=== PATIENT | male | born 1935 | race Caucasian/White ===

== ENCOUNTER → 2016-08-16 | Outpatient (CLI) | payer MEDICARE, OTHER ==
--- NOTE | 2016-08-17 08:15 | RAD ---
EXAM DESCRIPTION: XR ABDOMEN 1 VIEW (KUB) CLINICAL HISTORY: KIDNEY STONES COMPARISON: 18 November 2014 TECHNIQUE: KUB FINDINGS: There is an unremarkable bowel gas pattern. There are 3 nonobstructing stones project over the right kidney unchanged since the comparison study. There are 2 tiny stones projected over the central and upper portion of the left kidney which also appears stable since previous is observed. IMPRESSION: 1. Nonobstructing bilateral nephrolithiasis Electronically signed by: Chris Suarez MD 08/17/2016 08:14
== END ==
LOC: RAD 14:20
PROVIDERS: ATTEND Urology
DX: N20.0 Calculus of kidney (principal)

== ENCOUNTER → 2016-12-23 | Outpatient (CLI) | payer MEDICARE, OTHER | END | disposition home or self-care (01) | LOC: GMAB 10:30 | PROVIDERS: ATTEND Family Medicine | DX: Z12.5 Encounter for screening for malignant neoplasm of prostate (principal); I10 Essential (primary) hypertension; E03.9 Hypothyroidism, unspecified | CPT/HCPCS: 84439; 84443; 84481; G0103 ==

== ENCOUNTER → 2017-04-25 | Outpatient (CLI) | payer MEDICARE, OTHER ==
--- NOTE | 2017-04-26 16:07 | RAD ---
EXAM DESCRIPTION: XR ABDOMEN 1 VIEW (KUB) CLINICAL HISTORY: KIDNEY STONES COMPARISON: August 16, 2016 TECHNIQUE: KUB FINDINGS: There is an unremarkable bowel gas pattern. No obstruction or ileus is evident. No soft tissue masses or unusual calcifications are noted. Small intrarenal calculi overlying the mid and lower pole of each kidney and appear little changed from prior study. Bilateral pelvic phleboliths are noted. Age appropriate bony degenerative changes are present. IMPRESSION: Bilateral nonobstructing intrarenal calculi are little changed from prior study. Electronically signed by: Zack Layne MD 04/26/2017 4:05 PM CDT
== END ==
LOC: RAD 13:42
PROVIDERS: ATTEND Urology
DX: N20.0 Calculus of kidney (principal)

== ENCOUNTER → 2017-09-30 | Outpatient (CLI) | payer MEDICARE, OTHER | LOC: LAB.O 10:50 | PROVIDERS: ATTEND Internal Medicine Interventional Cardiology | DX: I10 Essential (primary) hypertension (principal); R07.9 Chest pain, unspecified ==

== ENCOUNTER → 2018-03-30 | Outpatient (CLI) | payer MEDICARE, OTHER | LOC: GMAE 11:18 | PROVIDERS: ATTEND Family Medicine | DX: E03.9 Hypothyroidism, unspecified (principal) ==

== ENCOUNTER → 2018-04-03 | Outpatient (CLI) | payer MEDICARE, OTHER ==
--- NOTE | 2018-04-03 14:52 | RAD ---
EXAM DESCRIPTION: KUB CLINICAL HISTORY: KIDNEY STONES COMPARISON: April 25, 2017 KUB TECHNIQUE: KUB FINDINGS: There is an unremarkable bowel gas pattern. Small calculus is seen in the region of the lower calyx of the right kidney which measures 4 mm. Calcifications are seen in the pelvis which are indeterminate and may represent phleboliths. No change in the pattern of calcification since previous study. Question tiny calculus in the lower calyx of the left kidney but this is not definite. IMPRESSION: Bilateral renal calculi. Pelvic calcifications unchanged compared to previous study, probably phleboliths. Electronically signed by: Rodger Marion MD 04/03/2018 2:51 PM CDT
== END ==
LOC: RAD 13:28
PROVIDERS: ATTEND Urology
DX: N20.0 Calculus of kidney (principal)

== ENCOUNTER → 2019-04-10 | Outpatient (CLI) | payer MEDICARE, OTHER | LOC: GMAE 10:39 | PROVIDERS: ATTEND Family Medicine | DX: Z12.5 Encounter for screening for malignant neoplasm of prostate (principal); E03.9 Hypothyroidism, unspecified; I10 Essential (primary) hypertension | CPT/HCPCS: 84439; 84443; 84481; G0103 ==

== ENCOUNTER → 2019-05-17 | Outpatient (CLI) | payer MEDICARE, OTHER ==
--- NOTE | 2019-05-18 10:37 | US ---
US THYROID CLINICAL STATEMENT: NONTOXIC SINGLE THYROID NODULE. No palpable mass, no prior thyroid surgery or therapy. COMPARISON: None TECHNIQUE: Transcutaneous scanning, grayscale and Doppler modes. FINDINGS: Size right thyroid lobe: 3.9 x 2.2 x 1.9 cm Size left thyroid lobe: 3.7 x 2.5 x 1.8 cm Size isthmus: 0.58 cm Estimated total number of nodules greater than or equal to 1 cm: 2. No distinct simple cyst, no large calcifications, and no parenchymal edema. Nodule 1: Size: 3.1 x 1.8 x 1.7 cm Location: Left Mid Composition: mixed cystic and solid: 1 point Echogenicity: hypoechoic: 2 points Shape: wider than tall: 0 points Margins: smooth: 0 points. Partially vascular. Echogenic foci: none: 0 points ACR Total Points: 3; ACR TI-RADS risk category: TR3 - mildly suspicious nodule. Nodule 2: Size: 1.1 x 0.8 x 0.7 cm Location: Right Upper Composition: solid or almost completely solid: 2 points Echogenicity: hypoechoic: 2 points Shape: wider than tall: 0 points Margins: smooth: 0 points. Margin is partially vascular. Echogenic foci: none: 0 points ACR Total Points: 4; ACR TI-RADS risk category: TR4 - moderately suspicious nodule. No dominant solid mass or distinct cyst in the surrounding soft tissues. IMPRESSION: 1. Nodule 1: ACR TI-RADS 2017 Category TR3. Recommend: Ultrasound-guided fine needle aspiration. Recommendations based upon [facility] Best Practice recommendations and ACR TI-RADS 2017 guidelines. Please see below*. 2. Nodule 2: ACR TI-RADS 2017 Category TR4. Recommend: Follow-up ultrasound in 1 year. 3. Soft tissue around the thyroid gland is unremarkable. *ACR TI-RADS 2017 Recommendations for imaging follow-up of nodules: TR1: No FNA or follow up TR2: No FNA or follow up TR3: FNA if >/= 2.5 cm, follow up if 1.5 - 2.4 cm in 1, 3, and 5 years TR4: FNA if >/= 1.5 cm, follow up if 1.0 - 1.4 cm in 1, 2, 3, and 5 years TR5: FNA if >/= 1.0 cm, follow up if 0.5 - 0.9 cm every year for 5 years ACR TI-RADS recommends that no more than two nodules with the highest ACR TI-RADS total point should be biopsied and no more than four nodules should be followed. These recommendations do not apply to patients with increased risk for thyroid cancer or patients with symptomatic thyroid disease. Electronically signed by: Trenton Castellanos MD 05/18/2019 10:35 AM CDT
== END ==
LOC: US 14:00
PROVIDERS: ATTEND Family Medicine
DX: E04.1 Nontoxic single thyroid nodule (principal)

== ENCOUNTER → 2019-06-05 | Outpatient (CLI) | payer MEDICARE, OTHER ==
--- NOTE | 2019-06-05 17:31 | US ---
Thyroid Biopsy, Image-Guided: Ultrasound CLINICAL INFORMATION: Partially cystic partially solid mass in the left lobe. TECHNIQUE: Timeout was performed prior to the procedure with identification of patient by name, date of , and procedure to be performed. Procedure was performed by Dr. Castellanos; explained to the patient with risks and benefits. The patient gave verbal and written consent. Sterile preparation draping. 1% xylocaine dermal anesthetic 9-1 mixture with sodium bicarbonate. Sterile ultrasound guidance. A total of 6 passes into complex mass left thyroid lobe; 3 needle samplings with a separate 1.5 inch, 25-gauge needle per sample, and 3 aspirations, with a separate 1.5 inch, 25-gauge needle/10-cc syringe set, per aspiration. A total of 10 mL fluid was aspirated. Each sample was placed on a separate slide and fixed in 95% alcohol container. Saccomanno fluid drawn into aspirate needle and rinse injected into Saccomanno container. Specimens to be sent for pathologic examination at remote facility. . Patient tolerated procedure well. Biopsy #: 1 Nodule reference number based on prior diagnostic ultrasound:3 Maximum size: 3.1 cm Location: left; mid ACR TI-RADS risk category: TR3 (3 points) Reason for biopsy: meets ACR TI-RADS criteria Comments: Approximately 10 mL of yellowish slightly turbid fluid was aspirated from the mass. Complications: None. IMPRESSION: Successful ultrasound guided fine needle aspiration and sampling of left thyroid nodule. Approximately 10 mL of non clear fluid, slightly turbid, was aspirated. ACR TI-RADS Risk Category TR 3: Mildly suspicious nodule. Electronically signed by: Trenton Castellanos MD 06/05/2019 5:30 PM [employer]
== END ==
LOC: US 09:00
PROVIDERS: ATTEND Family Medicine
DX: E04.1 Nontoxic single thyroid nodule (principal)

== ENCOUNTER → 2020-01-14 | Outpatient (CLI) | payer MEDICARE, OTHER ==
--- NOTE | 2020-01-15 07:47 | RAD ---
EXAM DESCRIPTION: Abdomen, single radiograph CLINICAL HISTORY: RIGHT RENAL STONES FINDINGS/ IMPRESSION: Comparison 04/03/2018 Right lower pole calculus unchanged, 3 mm. Right mid calculus 3 to 4 mm not included in the midyx-sy-zsnh on previous study A couple of punctate calcifications in the left kidney not seen on previous study No calculus along the course of the ureters. A few phleboliths in the pelvis Normal bowel gas pattern. No organomegaly or obvious abdominal mass lesion Electronically signed by: Zack Elaine MD 01/15/2020 7:46 AM CDT
== END ==
LOC: RAD 14:47
PROVIDERS: ATTEND Urology
DX: N20.0 Calculus of kidney (principal); I87.8 Other specified disorders of veins

== ENCOUNTER 2020-03-02 10:08 | Inpatient (IN) | payer MEDICARE, OTHER ==
[2020-03-02] MEDS ORDERED: ONDANSETRON INJ 4 MG/2 ML VIAL IV ONE (10:16)
--- NOTE | 2020-03-02 10:19 | ED.PDOC ---
History of Present Illness - General Time Seen by Provider: 03/02/20 10:14 Source: patient, Vital Signs reviewed Additional Information: This is an 84-year-old male patient, presents to the ER because of nausea vomiting, patient started taking gabapentin and he thinks that this could be the reason that this is been having the symptoms denies any fever chills no abdominal pain. Patient is scheduled to have a back procedure on next week or so he has been checking his blood pressure and temperature and has not had any fever and no sick contacts. Denies cigarettes alcohol or drugs Patient stopped taking his gabapentin yesterday but still feels very nauseated He stated that he has not been able to hold anything down Patient started taking the gabapentin 2 weeks ago, as of now he is first take the medication he became nauseous, and has some vomiting he was prescribed some Zofran he was doing well with the Zofran but then for the past 4 days started vomiting again and unable to hold any fluids down - History of Present Illness Timing/Duration: constant Worsening Factors: nothing Associated Symptoms: denies symptoms Allergies/Adverse Reactions: Allergies Penicillins Allergy (Verified 03/02/20 10:22) Home Medications: Ambulatory Orders Aspirin [Aspirin Adult Low Dose] 81 mg PO DAILY 03/02/20 Docusate Sodium [Colace Cap] 100 mg PO BEDTIME 03/02/20 Gabapentin 300 mg PO TID PRN 03/02/20 Ibuprofen 600 mg PO TID 03/02/20 Levothyroxine Sodium [Synthroid] 100 mcg PO DAILY 03/02/20 Metoprolol Succinate [Metoprolol Succinate ER] 50 mg PO DAILY 03/02/20 Ondansetron Odt [Zofran ODT] 8 mg PO TID PRN 03/02/20 Tamsulosin [Flomax] 0.8 mg PO BEDTIME 03/02/20 Tramadol HCl 50 mg PO PRN 03/02/20 Review of Systems - Review of Systems Constitutional: States: no symptoms reported EENTM: States: no symptoms reported Respiratory: States: no symptoms reported Cardiology: States: no symptoms reported Gastrointestinal/Abdominal: States: nausea, vomiting Genitourinary: States: no symptoms reported Musculoskeletal: States: no symptoms reported Skin: States: no symptoms reported Neurological: States: no symptoms reported Endocrine: States: no symptoms reported Hematologic/Lymphatic: States: no symptoms reported Family Medical History - Family History Father Family History: Unknown Living Status: Physical Exam - Physical Exam General Appearance: Alert, Well Developed, Well Groomed Eye Exam: bilateral normal Ears, Nose, Throat: hearing grossly normal Neck: non-tender, full range of motion, supple, normal inspection Respiratory: chest non-tender, lungs clear, normal breath sounds, no respiratory distress, no accessory muscle use Cardiovascular/Chest: normal peripheral pulses, regular rate, rhythm, no edema, no gallop, no JVD, no murmur Peripheral Pulses: radial,right: 2+ Gastrointestinal/Abdominal: normal bowel sounds, non tender, soft, no organomegaly, no pulsatile mass Back Exam: normal inspection Extremity: normal range of motion, non-tender, normal inspection, no pedal edema, no calf tenderness 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 Patient attributed his symptoms to the gabapentin but he stopped taking it yesterday and still having some symptoms, physical so there is no right lower quadrant pain no urinary retention no abdominal pain, EKG showed normal sinus rhythm with first-degree AV block no acute ischemic changes no ST elevation and no ST depressions 03/02/20 10:52 03/02/20 10:55 FINDINGS: A single view of the chest was obtained. The heart size is normal. The pulmonary vascularity is unremarkable. The lungs are clear. There is no consolidation, infiltrate, pleural effusion, or pneumothorax. IMPRESSION: No evidence of active pulmonary diseas 03/02/20 11:34During re evaluation, patient likely within normal limits no evidence of renal failure, patient denies complaining of some mild epigastric discomfort, and not feeling well still even after fluids and Zofran, I decided to order abdominal pelvic CT did call the hospital for possible admission since patient still not feeling well, 03/02/20 12:[address] did not show any intra-abdominal abnormalities will be admitted to the facility for nausea vomiting and dehydration and generalized weakness Departure - Departure Clinical Impression: Nausea and vomiting Qualifiers: Vomiting type: unspecified Vomiting Intractability: unspecified Qualified Code(s): R11.2 - Nausea with vomiting, unspecified Disposition: Admit Patient Referrals: DICK NORTON MD [Primary Care Provider] - 1-2 Weeks Home Medications: Ambulatory Orders Aspirin [Aspirin Adult Low Dose] 81 mg PO DAILY 03/02/20 Docusate Sodium [Colace Cap] 100 mg PO BEDTIME 03/02/20 Gabapentin 300 mg PO TID PRN 03/02/20 Ibuprofen 600 mg PO TID 03/02/20 Levothyroxine Sodium [Synthroid] 100 mcg PO DAILY 03/02/20 Metoprolol Succinate [Metoprolol Succinate ER] 50 mg PO DAILY 03/02/20 Ondansetron Odt [Zofran ODT] 8 mg PO TID PRN 03/02/20 Tamsulosin [Flomax] 0.8 mg PO BEDTIME 03/02/20 Tramadol HCl 50 mg PO PRN 03/02/20 Decision To Admit - Decistion To Admit Decision to Admit Reason: Admit from ER Decision to Admit Date: 03/02/20 Decision to Admit Time: 12:59
--- NOTE | 2020-03-02 10:47 | RAD ---
EXAM: Chest,1 View CLINICAL INDICATION: Shortness of breath, vomiting COMPARISON: There is no previous study for comparison. FINDINGS: A single view of the chest was obtained. The heart size is normal. The pulmonary vascularity is unremarkable. The lungs are clear. There is no consolidation, infiltrate, pleural effusion, or pneumothorax. IMPRESSION: No evidence of active pulmonary disease. Electronically signed by: Orlin Iqbal MD 03/02/2020 10:45 AM CDT
--- NOTE | 2020-03-02 12:47 | CT ---
EXAM: Abdomen/Pelvis w/Contrast CLINICAL INDICATION: Abdominal pain. COMPARISON: 02/28/2010 TECHNIQUE: The CT scan was done using contiguous axial 5 mm postcontrast sections through the abdomen and pelvis including IV contrast. This exam was performed according to our departmental dose-optimization program, which includes automated exposure control, adjustment of the mA and/or kV according to patient size and/or use of iterative reconstruction technique. FINDINGS: The visualized portions of the lung bases are clear a 10.1 x 6.9 mm nodule in the left lower lobe, series 2, image 3 which appears stable from 2010 consistent with a benign process. Another micronodule in the right lower lobe, series 2, image 8 measuring 3 mm is also stable from prior. The lung bases are otherwise clear. The liver and gallbladder are unremarkable. There is a nonobstructing stone in the lower pole of the right kidney measuring 5.9 x 2.5 mm and another nonobstructing stone in the left lower renal pole measuring 3 mm. Another 2 mm stone is seen in the left upper renal pole. There is a 1.3 cm simple cyst in the right upper renal pole. The kidneys are otherwise unremarkable. The adrenal glands, spleen, and pancreas are unremarkable. The aorta is normal in caliber. There is diverticulosis of the colon without findings of acute diverticulitis. No dilated loops of small bowel are identified. There is no free air, free fluid, or abscess. The appendix is normal. IMPRESSION: 1. No evidence of an acute intra-abdominal process. 2. Diverticulosis. 3. Bilateral nonobstructing renal stones. Electronically signed by: Orlin Iqbal MD 03/02/2020 12:45 PM CDT
--- NOTE | 2020-03-02 13:49 | HP ---
SUPERVISING PHYSICIAN: Alejo Morales M.D. CHIEF COMPLAINT: Nausea and vomiting. HISTORY OF PRESENT ILLNESS: This is an 84 year-old male patient who presented to the Emergency Room due to nausea and vomiting. He actually had a pinched nerve in his back that he has been having pain for and about 2 weeks ago he started Gabapentin that was prescribed by his doctor. He started feeling poorly shortly after taking it and actually had some nausea at that time. He called his primary care physician and they tried to use Zofran to help him tolerate the Gabapentin as he is to have a procedure done on his back this to relieve the pain. The patient stopped taking the Gabapentin on Tuesday and on Tuesday he started having fairly significant nausea and vomiting. He actually threw up so many times that he had become quite weak and typically is very active. The nausea and vomiting got to the point today where the nausea was intractable and so he came to the Emergency Room. In the Emergency Room he received some Zofran. His initial vital signs showed temperature 97.3, heart rate 74, blood pressure 188/97, respiratory rate 20, O2 saturation 99% on room air. His lab was done and his CBC is unremarkable. Chemistry showed a slightly low potassium at 3.5. Electrolytes were within normal limits. Serum osmolality was 272.9 with a glucose of 127. His COVID panel was negative. Chest x-ray showed no evidence of active pulmonary disease. Abdomen and pelvis CT showed: 1. No evidence of acute intraabdominal process. 2. Diverticulosis. 3. Bilateral nonobstructing renal stones. He was placed in observation in the hospital. PAST MEDICAL HISTORY: 1. Hypertension. 2. Hypothyroidism. 3. Benign prostatic hypertrophy. 4. Sciatica and lower back pain. PAST SURGICAL HISTORY: 1. Tonsillectomy. 2. Cardiac stent placement. OUTPATIENT MEDICATIONS: 1. Aspirin. 2. Colace. 3. Gabapentin. 4. Ibuprofen. 5. Levothyroxine. 6. Metoprolol. 7. Zofran. 8. Tamsulosin. ALLERGIES: PENICILLIN AND ADVERSE REACTION TO GABAPENTIN. SOCIAL HISTORY: He is . He lives in [place]. He denies tobacco, ETOH or illicit drug use. REVIEW OF SYSTEMS: GENERAL: Positive for fatigue. Negative for chills, fever or weight changes. HEENT: Negative for sinus symptoms, ear pain, vision changes or sore throat. RESPIRATORY: Negative for wheezing, coughing or shortness of breath. CARDIAC: Negative for chest pain, palpitations or tachycardia. GASTROINTESTINAL: Positive for nausea and vomiting with mild epigastric abdominal pain. Negative for diarrhea or constipation. GENITOURINARY: Negative for hematuria, dysuria or polyuria. MUSCULOSKELETAL: Negative for arthralgias, myalgias. SKIN: Negative for lesions or rashes. NEUROLOGIC: Positive for weakness. Negative for headaches or seizures. PHYSICAL EXAMINATION: VITAL SIGNS: Temperature 97.4. heart rate 79, blood pressure 144/88, respiratory rate 18, O2 saturation 98% on room air. GENERAL: This is an 84 year-old male patient who is lying in his hospital bed. He is younger than his stated age. HEENT: Normocephalic, atraumatic. Pupils are equal and reactive. Oropharynx is clear. NECK: Supple without mass. RESPIRATORY: Essentially clear to auscultation bilaterally. CHEST: There is equal rise and fall of the chest with inspiration and expiration. CARDIOVASCULAR: Regular rate and rhythm. GASTROINTESTINAL: Abdomen is soft. It is nondistended. It is mildly tender in the epigastric region. Bowel sounds are hyperactive. BACK: Exam is deferred. EXTREMITIES: No cyanosis, clubbing or edema. NEUROLOGIC: Awake, alert and oriented times three. Cranial nerves II-XII are grossly intact as tested. LABORATORY: Labs and films are as per the history of present illness. ASSESSMENT: 1. Gastritis with a negative abdominal CT. 2. Intractable nausea. 3. Sciatica and lower back pain pending surgical procedure on for pain relief. 4. Hypertension. 5. Hypothyroidism. 6. Benign prostatic hypertrophy. PLAN: The patient has been placed in observation. He will be placed on a clear liquid diet and he will be given fluids overnight. His nausea was not controlled when he came to the floor, so we added Phenergan to his Zofran and at this time he is comfortable. Will advance his diet as tolerated. I have restarted his home medications. He will have early ambulation and SCDs for DVT prophylaxis and a PPI for ulcer prophylaxis. I have ordered some labs for in the morning. Hopefully he can be discharged tomorrow. Will continue to monitor closely and follow as needed. #[id number] [facility]
[2020-03-02] MEDS ORDERED: ONDANSETRON INJ 4 MG/2 ML VIAL IV PRN (14:37)
[2020-03-02] MEDS ORDERED: SODIUM CHLORIDE 0.9% (FLUSH) 10 ML SYG IV PRN (14:40)
[2020-03-02] MEDS ORDERED: IV SET AND CAP CHANGE INJ INJ SCH (15:00)
[2020-03-02] MEDS: KCL 20MEQ/D5 1/2NS 1,000 ML IVS PRN ×2 (15:00→22:59)
[2020-03-02] MEDS: PANTOPRAZOLE SODIUM IV 40 MG VIAL IV SCH (15:01)
[2020-03-02] MEDS: MORPHINE SULFATE INJ 10 MG/ML VIAL IV PRN (15:10)
[2020-03-02] MEDS ORDERED: PROMETHAZINE HCL INJ 25 MG/ML VIAL ONE (16:55)
[2020-03-02] MEDS ORDERED: SODIUM CHLORIDE 0.9% 50ML 50 ML ONE (16:55)
[2020-03-02] MEDS: PROMETHAZINE HCL INJ 25 MG in SODIUM CHLORIDE 0.9% 50ML 50 ML IVPB PRN (16:59)
[2020-03-02] MEDS ORDERED: DOCUSATE SODIUM 100 MG CAP ONE (19:20)
[2020-03-02] MEDS ORDERED: TAMSULOSIN 0.4 MG CAP ONE (19:21)
[2020-03-02] MEDS ORDERED: TAMSULOSIN 0.4 MG CAP PO SCH (21:00)
[2020-03-02] MEDS ORDERED: DOCUSATE SODIUM 100 MG CAP PO SCH (21:00)
[2020-03-03] MEDS: PROMETHAZINE HCL INJ 25 MG in SODIUM CHLORIDE 0.9% 50ML 50 ML IVPB PRN (01:48)
[2020-03-03] MEDS: MORPHINE SULFATE INJ 10 MG/ML VIAL IV PRN (01:49)
[2020-03-03] MEDS: PANTOPRAZOLE SODIUM IV 40 MG VIAL IV SCH (05:40)
[2020-03-03 06:03] VITALS: O2SAT 96
[2020-03-03] MEDS ORDERED: LEVOTHYROXINE SODIUM 0.1 MG TAB PO SCH (06:30)
[2020-03-03] MEDS ORDERED: METOPROLOL SUCCINATE XL 50 MG TAB ONE (07:41)
[2020-03-03] MEDS: KCL 20MEQ/D5 1/2NS 1,000 ML IVS PRN (08:21)
[2020-03-03 08:38] VITALS: BP 126/72; TEMP 97.8
[2020-03-03] MEDS ORDERED: METOPROLOL SUCCINATE XL 50 MG TAB PO SCH (09:00)
--- NOTE | 2020-03-04 08:09 | DS ---
SUPERVISING PHYSICIAN: Vniod Giordano MD ADMISSION DIAGNOSIS: 1. Gastritis. 2. Intractable nausea with vomiting. 3. Sciatica and lower back pain pending surgical procedure on . 4. Hypertension. 5. Hypothyroidism. 6. Benign prostatic hypertrophy. DISCHARGE DIAGNOSIS: 1. Gastritis. 2. Intractable nausea with vomiting. 3. Sciatica and lower back pain pending surgical procedure on . 4. Hypertension. 5. Hypothyroidism. 6. Benign prostatic hypertrophy. HOSPITAL COURSE: This is an 84-year-old male patient who came to the Emergency Room due to nausea and vomiting. Apparently last week he was prescribed some tramadol and gabapentin for his low back pain and he has actually been scheduled for a procedure on . However, shortly after taking the gabapentin, the patient began to have some nausea and vomiting. He had not taken anymore doses, but yet the nausea and vomiting worsened. He came to the Emergency Room and was treated with antiemetics. Despite that, he continued to have some vomiting episodes. He was referred for admission for intractable nausea and vomiting. He was put on some IV fluids and given some Phenergan around midnight. Since that time, he has not had anymore nausea or vomiting. He ate breakfast this morning and did okay with it and did not have anymore vomiting episodes. I watched him throughout the morning and around 11 o'clock, he had still not vomited. Therefore, we decided to discharge. He was concerned about pain and taking the same medicines because he though that maybe the gabapentin or tramadol was the cause of the nausea and vomiting. I went ahead and prescribed some Tylenol #3 to him just in case he started to have some pain. He will advance his diet as tolerated. He can followup with his primary care physician in 1 or 2 weeks and go ahead and go through the procedure on . #[id number] [facility]
== END 2020-03-03 11:30 | disposition home or self-care (01) | DRG 392 ==
LOC: ER 10:08 → OBSVTOIN 13:48 → MS 13:48
PROVIDERS: ADMIT Nurse Practitioner Acute Care; ATTEND Nurse Practitioner
PROC: BW211ZZ Computerized Tomography (CT Scan) of Abdomen and Pelvis using Low Osmolar Contrast (ICD-10-PCS; principal; 2020-03-02)
DX: K29.70 Gastritis, unspecified, without bleeding (principal); E87.6 Hypokalemia; R53.1 Weakness; T42.6X5A Adverse effect of other antiepileptic and sedative-hypnotic drugs, initial encounter; M54.40 Lumbago with sciatica, unspecified side; I10 Essential (primary) hypertension; E03.9 Hypothyroidism, unspecified; N40.0 Benign prostatic hyperplasia without lower urinary tract symptoms; G58.9 Mononeuropathy, unspecified; I44.0 Atrioventricular block, first degree; K57.30 Diverticulosis of large intestine without perforation or abscess without bleeding; N20.0 Calculus of kidney; N28.1 Cyst of kidney, acquired; R91.8 Other nonspecific abnormal finding of lung field; Z11.59 Encounter for screening for other viral diseases; Z79.82 Long term (current) use of aspirin; Z79.899 Other long term (current) drug therapy; Z88.0 Allergy status to penicillin; Z95.5 Presence of coronary angioplasty implant and graft; Z79.1 Long term (current) use of non-steroidal anti-inflammatories (NSAID)

== ENCOUNTER → 2020-04-18 | Outpatient (CLI) | payer MEDICARE, OTHER | LOC: GMAE 10:35 | PROVIDERS: ATTEND Family Medicine | DX: Z12.5 Encounter for screening for malignant neoplasm of prostate (principal); E03.9 Hypothyroidism, unspecified; I10 Essential (primary) hypertension | CPT/HCPCS: 84439; 84443; 84481; G0103 ==

== ENCOUNTER → 2020-07-14 | Outpatient (CLI) | payer MEDICARE, OTHER ==
--- NOTE | 2020-07-14 16:52 | RAD ---
EXAM DESCRIPTION: KUB CLINICAL HISTORY: 84 years Male, RENAL STONES COMPARISON: March 02, 2020 Findings: One view(s)/radiograph(s) Bilateral nephrolithiasis. The largest right renal stone measures 5 mm. The largest left renal stone measures 3 mm. No suspicious calcification along the expected course of the ureters. Pelvic phleboliths. Nonobstructive bowel gas pattern. Moderate stool volume. No air-fluid level. No free air. No acute osseous abnormality. IMPRESSION: Bilateral nephrolithiasis. Electronically signed by: Amaury Cedeno MD 07/14/2020 4:50 PM [facility]
== END ==
LOC: RAD 12:57
PROVIDERS: ATTEND Urology
DX: N20.0 Calculus of kidney (principal)